=== PATIENT | male | born 1965 | race Caucasian/White ===

== ENCOUNTER 2021-09-22 14:15 | Emergency (ER) | payer SELFPAY ==
[~2021-09-22] VITALS: Ht 172.7 cm; Wt 77.1 kg
[2021-09-22 14:26] VITALS: BP 110/63
--- NOTE | 2021-09-22 14:59 | NUR ---
PT BIB [facility] C/O ETOH. BYSTANDERS CALLED AFTER SEEING PT LYING BEHIND A BUILDING. PT ALERT ORIENTED. NO ACUTE DISTRESS NOTED. SAFETY MAINTAINED.
--- NOTE | 2021-09-22 15:15 | NUR ---
PATIENT WAS GIVEN A SANDWICH AND JUICE
[2021-09-22 15:22] LABS: BASOPHILS % (AUTO) 0.8 % (0.0-2.0); EOSINOPHILS % (AUTO) 0.5 % (0.0-4.0); HEMATOCRIT 27.5 % (36-52); HEMOGLOBIN 9.4 g/dL (12.0-18.0); LYMPHOCYTES % (AUTO) 24.7 % (20.5-51.1); MEAN CORPUSCULAR HEMOGLOBIN 34 pg (27-31); MEAN CORPUSCULAR HGB CONC 34 g/dL (33-37); MEAN CORPUSCULAR VOLUME 98.4 fL (80-94); MONOCYTES # (AUTO) 0.3 K/uL (0.8-1.0); MONOCYTES % (AUTO) 7.7 % (1.7-9.3); NEUTROPHILS # (AUTO) 2.8 K/uL (1.8-7.7); NEUTROPHILS % (AUTO) 66.3 % (42.2-75.2); PLATELET COUNT (AUTO) 104 K/uL (140-450); RED BLOOD CELL COUNT(AUTO) 2.79 MIL/uL (4.20-6.10); RED CELL DISTRIBUTION WIDTH 15.3 % (11.6-13.7); WHITE BLOOD COUNT (AUTO) 4.2 K/uL (4.8-10.8)
[2021-09-22 15:37] LABS: ALBUMIN 3.5 g/dL (3.4-5.0); ANION GAP 12.2 (8-16); CARBON DIOXIDE 27.1 mmol/L (21-32); CREATININE 0.4 mg/dL (0.6-1.3); POTASSIUM 3.3 mmol/L (3.5-5.1); TOTAL BILIRUBIN 3.1 mg/dL (0.0-1.0)
--- NOTE | 2021-09-22 17:35 | NUR ---
PT WAS ROAD TESTED, PT IS ABLE TO AMBULATE WITH STEADY GAIT, PT IS A&OX4, PT WANTS TO LEAVE DR STAPLETON MADE AWARE.
[2021-09-22 17:42] VITALS: BP 113/67
--- NOTE | 2021-09-22 17:42 | NUR ---
PT UP FOR DISCHARGE BY DR STAPLETON, PT LEFT WITHOUT D/C PAPERWORK.
== END 2021-09-22 17:42 | disposition home or self-care (01) ==
LOC: MED 14:15
DX: F10.129 Alcohol abuse with intoxication, unspecified (principal); Y90.9 Presence of alcohol in blood, level not specified
CPT/HCPCS: 36415; 80053; 85025; 99283